=== PATIENT | male | born 1990 | race Native Hawaiian/Other Pacific Islander ===

== ENCOUNTER 2021-01-06 13:35 | Emergency (ER) | payer SELFPAY ==
[2021-01-06] MEDS: LET TOPICAL (LIDOCAINE/EPINEPHRINE/TETRACAINE) 3 ML TP ONE (14:37)
[2021-01-06] MEDS: HYDROGEN PEROXIDE 118 ML SOLUTION TP STA (14:37)
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
[2021-01-06 15:51] VITALS: BP 127/79
== END 2021-01-06 15:51 | disposition home or self-care (01) ==
LOC: ED 13:35
DX: S01.81XA Laceration without foreign body of other part of head, initial encounter (principal); Y08.89XA Assault by other specified means, initial encounter; Y93.89 Activity, other specified; Y92.89 Other specified places as the place of occurrence of the external cause; Y99.8 Other external cause status
CPT/HCPCS: 99282